=== PATIENT | female | born 1965 | race Caucasian/White ===

== ENCOUNTER 2016-10-22 19:34 | Emergency (ER) | payer OTHER ==
--- NOTE | ~2016-10-22 | EKG ---
PATIENT: CHERRI SARAVIA UNIT #: [id number] Ventricular Rate: 81 BPM Atrial Rate: 81 BPM P-R Interval: 142 ms QRS Duration: 70 ms Q-T Interval: 366 ms QTC Calculation(Bezet): 425 ms P Clare: 54 degrees Calculated R Clare: 2 degrees Calculated T Clare: 17 degrees Diagnosis Line: Poor data quality, interpretation may be Diagnosis Line: adversely affected Diagnosis Line: Normal sinus rhythm Diagnosis Line: Nonspecific ST abnormality Diagnosis Line: Abnormal ECG Diagnosis Line: No previous ECGs available Diagnosis Line: Confirmed by SLICK CHRISTIAN MD ([id number]) on Diagnosis Line: 12/08/2016 4:05:28 PM INTERPRETING MD: MICHELLE
--- NOTE | ~2016-10-22 | CR72 ---
[facility] A Service of [facility] & [facility] RADIOLOGY TEXT RESULTS PATIENT: CHERRI SARAVIA LOCATION: SED : 65 UNIT #: [id number] AGE: [address]: Anil Monet MD SEX: F ORDER DR: [id number] [address] [address] [id number] E MR#: [id number] Acc #: [id number] NAME: CHERRI SARAVIA : 1965 SEX: F STUDY DATE/TIME: 10/22/2016 19:48 UNIT: SED ROOM: STUDY DESCRIPTION: CR Chest Single View Portable Attending Physician: Anil Monet M.D. Ordering Physician: Anil Monet M.D. Primary Care Physician: Chavo Perez M.D. MEDICAL IMAGING REPORT This report is preliminary unless electronic signature is present. EXAM Portable chest, 10/22/2016 HISTORY Chest pain for 3 days. Benign essential hypertension, left-side chest pain. FINDINGS A single AP portable view of the chest shows both lungs to be clear. The heart is normal in size. The mediastinal contour is normal. No significant bone abnormalities are seen. IMPRESSION Normal portable chest. Dictated by... Galo Snyder M.D. THIS IS AN ELECTRONICALLY VERIFIED REPORT Galo Snyder M.D. at 10/23/2016 10:56 AM ROSANA/guru TD: 10/23/2016 04:10 JOB #: [id number] MEDICAL IMAGING REPORT
[~2016-10-22 19:34] MED LIST: ALBUTEROL SULF8.5 G1 IH; AMOXICILLIN PO; BROMFED DM COU118 ML PO; CATAFLAM50 MG PO; CHOLESTEROL MED; CIPRO PO; DARVOCET-N 1001 TAB PO; DIOVAN; DIURETIC; FLEXERIL PO; FLEXERIL10 M1 PO; FLEXERIL10 MG PO; IBUPROFEN PO; IBUPROFEN600 MG PO; IBUPROFEN800 MG; IBUPROFEN800 MG PO; KCL PO; KEFLEX500 M1 PO; KLONOPIN PO; LASIX PO; LIPITOR PO; LORTAB 10/500 T1 TAB PO; MEDROL PO; MEDROL4 MG/DOSE- PO; MOTRIN600 M2 PO; NAPROSYN500 MG PO; NORCO 10-325 TA1 TAB PO; PEN-VEE K PO; PREDNISONE PO; SUBOXONE 2 MG-1 EACH; ULTRAM PO; VALIUM10 MG PO; VICODIN 5/500 T1 TAB PO; [UNRECOGNIZED DRUG - OTHER]; [UNRECOGNIZED DRUG - OTHER]; [UNRECOGNIZED DRUG - REMARK]
[2016-10-22 19:55] LABS: BASOPHIL# 0.1 X10e3 (0-0.3); BASOPHIL% 1.4 % (0-2.5); EOSINOPHIL# 0.1 X10e3 (0-0.7); EOSINOPHIL% 1.5 % (0.0-7.0); HEMATOCRIT 39.7 % (35.0-45.0); HEMOGLOBIN 13.6 gm/dL (12.0-16.0); LYMPHOCYTE# 3.5 X10e3 (1.0-3.5); LYMPHOCYTE% 43.3 % (17.0-45.0); MEAN CELL VOLUME 88.5 FL (83-96); MEAN CORPUSCULAR HEMOGLOBIN 30.3 PG (28-34); MEAN CORPUSCULAR HGB CONC 34.3 g/dL (30-36); MEAN PLATELET VOLUME 8.6 FL (6.5-11.5); MONOCYTE# 0.7 X10e3 (0-1.0); MONOCYTE% 8.7 % (3.0-12.0); NEUTROPHIL# 3.6 X10e3 (1.5-7.1); NEUTROPHIL% 45.1 % (40-75); PLATELET COUNT 341 X10e3 (140-420); RED BLOOD COUNT 4.49 X10e (3.90-5.30); RED CELL DISTRIBUTION WIDTH 13.6 % (11.0-15.5)
[2016-10-22 19:56] LABS: DIFF IND NO
[2016-10-22 19:57] LABS: PROTHROMBIN TIME (PATIENT) 10.9 SECONDS (9.5-12.4)
[2016-10-22 20:04] LABS: PARTIAL THROMBOPLASTIN TIME 28.5 SECONDS (25.6-38.1)
[2016-10-22 20:06] LABS: ALBUMIN SERUM 4.5 g/dL (3.5-5.0); ALKALINE PHOSPHATASE 31 U/L (32-92); ALT (SGPT) 22 U/L (10-40); AST (SGOT) 22 U/L (10-42); BILIRUBIN,TOTAL 0.1 mg/dL (0.2-2.0); BLOOD UREA NITROGEN 15 mg/dL (9-23); BUN/CREATININE RATIO 18.75; CALCIUM SERUM 9.2 mg/dL (8.4-10.2); CARBON DIOXIDE 27 mmol/L (22-31); CHLORIDE 103 mmol/L (100-111); CREATININE SERUM 0.8 mg/dL (0.6-1.4); GLOM FILT RATE Estimated ABOVE60 mL/min (>60); GLUCOSE FASTING 94 mg/dL (70-110); POTASSIUM 3.9 mmol/L (3.5-5.1); PROTEIN TOTAL SERUM 7.5 g/dL (6.0-8.3); SODIUM 137 mmol/L (135-145)
[2016-10-22 20:16] LABS: POC - CKMB 1.6 ng/mL (0.0-7.9)
[2016-10-22 20:17] LABS: POC - TROPONIN <0.05 ng/mL (<=0.05)
== END 2016-10-23 00:07 ==
LOC: SED 19:34
DX: R07.9 Chest pain, unspecified (principal); R06.02 Shortness of breath; I10 Essential (primary) hypertension; E78.5 Hyperlipidemia, unspecified; G47.33 Obstructive sleep apnea (adult) (pediatric)
CPT/HCPCS: 71010; 80053; 82553; 83874; 84484; 85025; 85610; 85730; 93005; 99285

== ENCOUNTER → 2016-12-16 | Outpatient (CLI) | payer OTHER ==
--- NOTE | ~2016-12-16 | MY11 ---
[facility] A Service [facility] RADIOLOGY TEXT RESULTS PATIENT: CHERRI SARAVIA LOCATION: [facility] : 65 UNIT #: [id number] AGE: [address]: Chavo Perez MD SEX: F ORDER DR: [id number] [place] [id number] O MR#: [id number] Acc #: [id number] NAME: CHERRI SARAVIA : 1965 SEX: F STUDY DATE/TIME: 12/16/2016 9:43 UNIT: [facility] ROOM: STUDY DESCRIPTION: MY Mammogram Screening Dig Steve Attending Physician: Chavo Perez M.D. Referring Physician: Chavo Perez M.D. Ordering Physician: Chavo Perez M.D. Primary Care Physician: Chavo Perez M.D. MEDICAL IMAGING REPORT This report is preliminary unless electronic signature is present. EXAM Bilateral Digital Screening Mammogram with CAD INDICATION Breast cancer screening. 51-year-old asymptomatic female. No personal or family history of breast cancer. COMPARISON March 02, 2015, January 20, 2015, May 14, 2013, December 24, 2010. FINDINGS The breasts are almost entirely fatty. No suspicious findings are present. IMPRESSION No mammographic evidence of malignancy. Annual screening mammography and clinical breast exam are recommended. A result letter will be sent to the patient. Patients over the age of 40 are entered into a reminder system with target due date for the next mammogram. BIRADS: 1 Negative Dictated by... Gaudencio Mcleod M.D. THIS IS AN ELECTRONICALLY VERIFIED REPORT Gaudencio Mcleod M.D. at 12/16/2016 5:25 PM DIANE/liza [facility] A Service [facility] RADIOLOGY TEXT RESULTS PATIENT: CHERRI SARAVIA LOCATION: [facility] : 65 UNIT #: [id number] AGE: [address]: Chavo Perez MD SEX: F ORDER DR: TD: 12/16/2016 10:39 JOB #: [id number] MEDICAL IMAGING REPORT Page 1 of 1
== END | disposition home or self-care (01) ==
LOC: SMAM 09:09
DX: Z12.31 Encounter for screening mammogram for malignant neoplasm of breast (principal)
CPT/HCPCS: G0202

== ENCOUNTER 2016-12-26 17:29 | Emergency (ER) | payer OTHER ==
--- NOTE | ~2016-12-26 | EKG ---
PATIENT: CHERRI SARAVIA UNIT #: [id number] Ventricular Rate: 71 BPM Atrial Rate: 71 BPM P-R Interval: 144 ms QRS Duration: 78 ms Q-T Interval: 386 ms QTC Calculation(Bezet): 419 ms P Chauncey: 48 degrees Calculated R Chauncey: 0 degrees Calculated T Chauncey: 24 degrees Diagnosis Line: Normal sinus rhythm Diagnosis Line: Minimal voltage criteria for LVH, may be normal Diagnosis Line: variant Diagnosis Line: Otherwise normal ECG Diagnosis Line: When compared with ECG of 22-OCT-2016 19:17, Diagnosis Line: No significant change was found Diagnosis Line: Confirmed by MANINDER PADILLA MD ([id number]) on 12/29/2016 Diagnosis Line: 3:48:33 PM INTERPRETING MD: RANDY DE ANDA
--- NOTE | ~2016-12-26 | CR72 ---
[facility] A Service of [facility] & [facility] RADIOLOGY TEXT RESULTS PATIENT: CHERRI SARAVIA LOCATION: SED : 65 UNIT #: [id number] AGE: [address]: Jl Harman MD SEX: F ORDER DR: [id number] [place] [id number] E MR#: [id number] Acc #: [id number] NAME: CHERRI SARAVIA : 1965 SEX: F STUDY DATE/TIME: 12/26/2016 16:46 UNIT: SED ROOM: STUDY DESCRIPTION: CR Chest Single View Portable Attending Physician: Jl Harman M.D. Ordering Physician: Jl Harman M.D. Primary Care Physician: Chavo Perez M.D. MEDICAL IMAGING REPORT This report is preliminary unless electronic signature is present. EXAM Portable chest INDICATIONS Left-sided facial droop since 11:00 a.m. today. TECHNIQUE Frontal view of the chest. COMPARISON STUDIES 04/26/2017. FINDINGS Heart size unchanged. No dense consolidation, effusion or pneumothorax. IMPRESSION No active process. Dictated by... Everett Giles M.D. THIS IS AN ELECTRONICALLY VERIFIED REPORT Everett Giles M.D. at 12/27/2016 7:06 AM EED/lilibeth TD: 12/26/2016 19:08 JOB #: [id number] MEDICAL IMAGING REPORT Page 1 of 1
--- NOTE | ~2016-12-26 | CT72 ---
[facility] A Service [facility] RADIOLOGY TEXT RESULTS PATIENT: CHERRI SARAVIA LOCATION: SED : 65 UNIT #: [id number] AGE: [address]: Jl Harman MD SEX: F ORDER DR: [id number] [address] [address] [id number] E MR#: [id number] Acc #: [id number] NAME: CHERRI SARAVIA. : 1965 SEX: F STUDY DATE/TIME: 12/26/2016 16:41 UNIT: SED ROOM: STUDY DESCRIPTION: CT Head Wo Contrast Stroke Attending Physician: Jl Harman M.D. Ordering Physician: Jl Harman M.D. Primary Care Physician: Chavo Perez M.D. MEDICAL IMAGING REPORT This report is preliminary unless electronic signature is present. EXAM CT scan of the head without contrast HISTORY Focal neurological deficit, left facial droop since 11 a.m. Patient had heart catheterization on 12/24. COMPARISON 05/06/2009 TECHNIQUE Axial noncontrast images were obtained from the skull base to the vertex. This CT exam was performed with one or more of the following radiation dose reduction techniques: automatic exposure control, adjustment of mA and/or kV according to patient size, and iterative reconstruction. FINDINGS Ventricular size and configuration are normal. There is no evidence of acute infarct or hemorrhage. There are no extraaxial fluid collections. No mass lesion or mass effect is seen. There are no skull fractures. IMPRESSION Normal noncontrast head CT. Dictated by... Willian Woods M.D. THIS IS AN ELECTRONICALLY VERIFIED REPORT [facility] A Service [facility] RADIOLOGY TEXT RESULTS PATIENT: CHERRI SARAVIA LOCATION: SED : 65 UNIT #: [id number] AGE: [address]: Jl Harman MD SEX: F ORDER DR: Willian Woods M.D. at 12/27/2016 3:28 PM VLADIMIR/gordo TD: 12/26/2016 18:52 JOB #: [id number] MEDICAL IMAGING REPORT Page 1 of 1
[2016-12-26 16:55] LABS: BASOPHIL# 0.1 X10e3 (0-0.3); BASOPHIL% 0.9 % (0-2.5); DIFF IND NO; EOSINOPHIL# 0.1 X10e3 (0-0.7); EOSINOPHIL% 1.4 % (0.0-7.0); HEMATOCRIT 41.8 % (35.0-45.0); HEMOGLOBIN 13.5 gm/dL (12.0-16.0); LYMPHOCYTE% 43.2 % (17.0-45.0); MEAN CELL VOLUME 89.7 FL (83-96); MEAN CORPUSCULAR HEMOGLOBIN 28.9 PG (28-34); MEAN CORPUSCULAR HGB CONC 32.2 g/dL (30-36); MEAN PLATELET VOLUME 8.3 FL (6.5-11.5); MONOCYTE# 0.6 X10e3 (0-1.0); MONOCYTE% 6.7 % (3.0-12.0); NEUTROPHIL# 4.4 X10e3 (1.5-7.1); NEUTROPHIL% 47.8 % (40-75); PLATELET COUNT 315 X10e3 (140-420); RED BLOOD COUNT 4.66 X10e (3.90-5.30); RED CELL DISTRIBUTION WIDTH 13.7 % (11.0-15.5); WHITE BLOOD COUNT 9.2 X10e3 (4.0-10.5)
[2016-12-26 17:10] LABS: INR 1.1
[2016-12-26 17:26] LABS: BUN/CREATININE RATIO 21.25; CALCIUM SERUM 9.5 mg/dL (8.4-10.2); CREATININE SERUM 0.8 mg/dL (0.6-1.4); GLOM FILT RATE Estimated 85.4 mL/min (>60); POTASSIUM 4.1 mmol/L (3.5-5.1)
== END 2016-12-26 19:03 ==
LOC: CED 17:29
PROVIDERS: Emergency Medicine
DX: R29.810 Facial weakness (principal); E78.5 Hyperlipidemia, unspecified; G43.909 Migraine, unspecified, not intractable, without status migrainosus
CPT/HCPCS: 36415; 70450; 71010; 80048; 82947; 85025; 85610; 93005; 99291